=== PATIENT | female | born 1995 | race Two or more races ===

== ENCOUNTER 2019-01-29 18:37 | Emergency (ER) | payer SELFPAY ==
[2019-01-29 18:49] VITALS: BP 125/74
[2019-01-29] MEDS ORDERED: LIDOCAINE-MPF 1%, 2ML ONE ×3 (19:25→19:38)
[2019-01-29] MEDS ORDERED: LIDOCAINE 1%, 10ML INFIL ONE (19:30)
--- NOTE | 2019-01-29 20:19 | NUR ---
LACERATIONS IRRIGATED BY EMT AFTER XYLOCAINE ADMINISTERED BY MANOJ
[2019-01-29] MEDS ORDERED: NEOSPORIN OINT. PKT 1 PACKET ONE (20:47)
--- NOTE | 2019-01-29 20:52 | NUR ---
WOUND CLEANED AND DRESSING APPLIED WITH BACITRACIN
== END 2019-01-29 20:54 | disposition home or self-care (01) ==
LOC: ED 20:30
DX: S51.812A Laceration without foreign body of left forearm, initial encounter (principal); Y33.XXXA Other specified events, undetermined intent, initial encounter; Y93.89 Activity, other specified; Y92.89 Other specified places as the place of occurrence of the external cause; Y99.8 Other external cause status
CPT/HCPCS: 12032; 99285; J3490

== ENCOUNTER 2019-05-09 16:19 | Emergency (ER) | payer OTHER ==
[~2019-05-09] VITALS: Ht 160 cm; Wt 65.5 kg
[2019-05-09 16:25] VITALS: BP 120/62
[2019-05-09] MEDS ORDERED: HYDROcodone/APAP 5/325 TABLET PO ONE (17:00)
[2019-05-09] MEDS ORDERED: HYDROcodone/APAP 5/325 TABLET ONE (17:18)
== END 2019-05-09 18:09 | disposition home or self-care (01) ==
LOC: ED 17:45
DX: L03.011 Cellulitis of right finger (principal)
CPT/HCPCS: 99283

== ENCOUNTER 2019-06-17 22:29 | Emergency (ER) | payer SELFPAY ==
[~2019-06-17] VITALS: Ht 154.9 cm; Wt 67.7 kg
--- NOTE | 2019-06-17 22:54 | NUR ---
Interpretor contacted for urdu translation. Patient states for four days she has had pain in all quadrants of abd which radiates to back. The pain is worse when she walks and better when she's resting. She rates the pain as a 10/10 on the pain scale. She took Tylenol for the pain. She has had a small amount of bleeding since yesterday. She is 5-6 weeks . Patient states it is painful to urinate. Patient has been nauseous with vomiting. She states she had one episode of fainting four days ago when the pain started.
--- NOTE | 2019-06-17 23:00 | NUR ---
Interpretor number [id number]
[2019-06-17 23:03] VITALS: BP 107/66
[2019-06-17] MEDS ORDERED: HYDROcodone/APAP 5/325 TABLET ONE (23:13)
[2019-06-17 23:20] LABS: BASOPHILS # (AUTO) 0.02 x10^3/uL (0-0.1); BASOPHILS % (AUTO) 0 % (0-1); EOSINOPHILS # (AUTO) 0.14 x10^3/uL (0-0.4); EOSINOPHILS % (AUTO) 2 % (1-7); LYMPHOCYTES # (AUTO) 1.63 x10^3/uL (1-3.4); LYMPHOCYTES % (AUTO) 20 % (22-44); MD NO; MEAN CORPUSCULAR HEMOGLOBIN 30.9 pg (27.0-34.8); MEAN CORPUSCULAR HGB CONC 33.2 g/dL (32.4-35.8); MEAN CORPUSCULAR VOLUME 93.1 fL (80-100); MEAN PLATELET VOLUME 7.4 fL (7.4-10.4); MONOCYTES # (AUTO) 0.77 x10^3/uL (0.2-0.8); MONOCYTES % (AUTO) 10 % (2-9); NEUTROPHILS # (AUTO) 5.51 x10^3/uL (1.8-6.8); NEUTROPHILS % (AUTO) 68 % (42-75); PLATELET COUNT 258 x10^3/uL (130-400); RED BLOOD COUNT 3.27 x10^6/uL (3.82-5.3); RED CELL DISTRIBUTION WIDTH 13.7 % (9.6-15.2)
[2019-06-17] MEDS ORDERED: HYDROcodone/APAP 5/325 TABLET PO ONE (23:30)
[2019-06-17 23:33] LABS: ALBUMIN 3.4 g/dL (3.4-5.0); ANION GAP 7 mmol/L (5-15); CALCIUM 8.1 mg/dL (8.5-10.1); CHLORIDE 108 mmol/L (98-107)
[2019-06-17 23:38] LABS: MICROSCOPIC NOT IND
[2019-06-17 23:41] LABS: CULTURE INDICATED? NO
[2019-06-17 23:51] LABS: ALANINE AMINOTRANSFERASE 39 U/L (12-78); ALKALINE PHOSPHATASE 70 U/L (45-117); BILIRUBIN,TOTAL 0.4 mg/dL (0.2-1.0); CREATININE 0.59 mg/dL (0.55-1.02); TOTAL PROTEIN 6.8 g/dL (6.4-8.2)
--- NOTE | 2019-06-18 01:23 | NUR ---
Patient given discharge instructions and they have confirmed that they understand the instructions. Patient ambulatory with steady gait. Belongings with patient.
== END 2019-06-18 01:24 | disposition home or self-care (01) ==
LOC: ED 23:38
DX: O20.0 Threatened abortion (principal)
CPT/HCPCS: 36415; 76801; 80053; 81003; 84702; 85025; 86901; 99284

== ENCOUNTER 2019-06-21 17:59 | Day surgery (SDC) | payer OTHER ==
[~2019-06-21] VITALS: Ht 154.9 cm; Wt 72.7 kg
[2019-06-21 21:10] LABS: ALBUMIN 3.7 g/dL (3.4-5.0); ANION GAP 6 mmol/L (5-15); CALCIUM 8.6 mg/dL (8.5-10.1); CHLORIDE 110 mmol/L (98-107)
[2019-06-21 21:16] LABS: BASOPHILS # (AUTO) 0.03 x10^3/uL (0-0.1); BASOPHILS % (AUTO) 0 % (0-1); EOSINOPHILS # (AUTO) 0.15 x10^3/uL (0-0.4); EOSINOPHILS % (AUTO) 2 % (1-7); LYMPHOCYTES # (AUTO) 2.36 x10^3/uL (1-3.4); LYMPHOCYTES % (AUTO) 31 % (22-44); MD NO; MEAN CORPUSCULAR HEMOGLOBIN 31.1 pg (27.0-34.8); MEAN CORPUSCULAR HGB CONC 33.2 g/dL (32.4-35.8); MEAN CORPUSCULAR VOLUME 93.7 fL (80-100); MEAN PLATELET VOLUME 7.2 fL (7.4-10.4); MONOCYTES # (AUTO) 0.62 x10^3/uL (0.2-0.8); MONOCYTES % (AUTO) 8 % (2-9); NEUTROPHILS # (AUTO) 4.53 x10^3/uL (1.8-6.8); NEUTROPHILS % (AUTO) 59 % (42-75); PLATELET COUNT 318 x10^3/uL (130-400); RED BLOOD COUNT 2.83 x10^6/uL (3.82-5.3); RED CELL DISTRIBUTION WIDTH 14.7 % (9.6-15.2)
[2019-06-21] MEDS ORDERED: ACETAMINOPHEN 500 MG TABLET PO ONE (22:00)
[2019-06-21] MEDS ORDERED: ONDANSETRON ODT 4 MG PO ONE (22:00)
[2019-06-21] MEDS ORDERED: ONDANSETRON ODT 4 MG ONE (22:02)
[2019-06-21] MEDS ORDERED: ACETAMINOPHEN 500 MG TABLET ONE (22:02)
--- NOTE | 2019-06-21 22:07 | NUR ---
MEDS ADMIN PER TESSIE. AT BEDSIDE TO UPDATE PT ON POC. PT IS REQUESTING TRANSLATER. STATES PT IS TO BE NPO AT THIS TIME.
[2019-06-21] MEDS ORDERED: SODIUM CHLORIDE FLUSH 10ML SYR IVF ONE (22:30)
[2019-06-21] MEDS ORDERED: ONDANSETRON 2MG/ML, 2ML IVPush PRN (22:30)
[2019-06-21] MEDS ORDERED: MORPHINE SULFATE 4 MG/ML, 1ML IVPush PRN (22:30)
[2019-06-21] MEDS ORDERED: MORPHINE SULFATE 4 MG/ML, 1ML ONE (22:57)
--- NOTE | 2019-06-21 23:06 | NUR ---
REPORT GIVEN TO ABILIO SNELL IN OR
--- NOTE | 2019-06-21 23:08 | NUR ---
SURGEON AT BEDSIDE TO UPDATE PT AND FAMILY ON POC.
[2019-06-21] MEDS ORDERED: DEXAMETHASONE 4 MG/ML, 1ML ONE ×2 (23:27)
[2019-06-21] MEDS ORDERED: FENTANYL PF 100 MCG/2ML ONE (23:27)
[2019-06-21] MEDS ORDERED: MIDAZOLAM 1 MG/ML, 2ML ONE (23:27)
[2019-06-21] MEDS ORDERED: PROPOFOL 10 MG/ML, 20ML ONE (23:27)
[2019-06-21] MEDS ORDERED: ROCURONIUM 10MG/ML,5ML ONE (23:27)
[2019-06-21] MEDS ORDERED: ONDANSETRON 2MG/ML, 2ML ONE (23:27)
[2019-06-21] MEDS ORDERED: LIDOCAINE-MPF 2% ,5ML ONE (23:45)
[2019-06-21] MEDS ORDERED: CEFAZOLIN 1,000 MG ONE (23:45)
[2019-06-22] MEDS ORDERED: HYDROmorphone 2 MG/ML, 1ML IVPush PRN
[2019-06-22] MEDS ORDERED: LORazepam 2 MG/ML, 1ML IVPush PRN
[2019-06-22] MEDS ORDERED: METOCLOPRAMIDE 5 MG/ML, 2ML IV PRN
[2019-06-22] MEDS ORDERED: OXYcodone 5 MG/5 ML ORAL.SOL UDC PO PRN
[2019-06-22] MEDS ORDERED: ONDANSETRON 2MG/ML, 2ML IV PRN
[2019-06-22] MEDS ORDERED: MEPERIDINE/PF 25MG/ML,1ML IVPush PRN
[2019-06-22] MEDS ORDERED: BUPIVACAINE/PF-EPI 0.25% 1:200K INFIL ONE (00:13)
[2019-06-22] MEDS ORDERED: SUGAMMADEX 200 MG/2 ML IVPush ONE (00:26)
[2019-06-22] MEDS ORDERED: MEPERIDINE/PF 25MG/ML,1ML ONE (00:47)
[2019-06-22] MEDS ORDERED: OXYcodone 5 MG/5 ML ORAL.SOL UDC ONE (00:47)
[2019-06-22] MEDS ORDERED: FENTANYL PF 100 MCG/2ML ONE (00:55)
[2019-06-22] MEDS: FENTANYL PF 100 MCG/2ML IV PRN ×4 (00:56→01:15)
[2019-06-22] MEDS ORDERED: LORazepam 2 MG/ML, 1ML ONE (01:14)
[2019-06-22] MEDS ORDERED: KETOROLAC 30 MG/1 ML ONE (01:23)
[2019-06-22] MEDS ORDERED: KETOROLAC 30 MG/1 ML IVPush PRN ×2 (01:30→02:35)
[2019-06-22] MEDS ORDERED: OXYcodone/APAP 5/325MG TABLET PO PRN (01:30)
[2019-06-22] MEDS ORDERED: ONDANSETRON 2MG/ML, 2ML IVPush PRN (01:30)
[2019-06-22] MEDS ORDERED: morphine SULFATE 10 MG/ML, 1ML IVPush PRN (01:30)
[2019-06-22 02:23] VITALS: BP 104/69
[2019-06-22] MEDS ORDERED: IBUP-1222 PO (02:51)
[2019-06-22] MEDS ORDERED: OXYC-302 PO (02:55)
[2019-06-22 04:41] LABS: MICROSCOPIC AUTO
[2019-06-22 04:43] LABS: CULTURE INDICATED? NO
[2019-06-22] MEDS ORDERED: IBUPROFEN 600 MG TABLET PO SCH (06:00)
== END 2019-06-22 06:30 | disposition home or self-care (01) ==
LOC: OUT 22:02 → ED 22:02 → 4NE 06-22 02:10 → ED 06-22 06:30 → OUT 06-22 06:30
PROVIDERS: ATTEND Obstetrics & Gynecology
DX: O00.101 Right tubal pregnancy without intrauterine pregnancy (principal); D62 Acute posthemorrhagic anemia; N83.201 Unspecified ovarian cyst, right side
CPT/HCPCS: 36415; 59151; 76801; 80048; 81001; 82040; 84702; 85025; 86850; 86900; 88305; 96374; 96375; 99291; J1100; J1885; J2060; J2175; J2250; J2270; J2405; J2704; J3010; Q0162; 86901; G0378; J0690